=== PATIENT | female | born 1945 | race Caucasian/White ===

== ENCOUNTER 2017-09-06 20:42 | Emergency (ER) | payer MEDICARE, MEDICAID ==
[2017-09-06] MEDS ORDERED: HYDROCODONE/APAP 5/325MG TABLET PO ONE (21:22)
--- NOTE | 2017-09-06 21:48 | Emergency Department Record ---
History of Present Illness - General Chief Complaint: Fall Injury Stated Complaint: FALL INJURY/LEFT HIP Time Seen by Provider: 09/06/17 21:17 Source: Patient Mode of Arrival: Wheelchair Limitations: No limitations - History of Present Illness Initial Comments: pt fell this morning injuring l hip. she laid on the floor for an hour and then was able to get up with difficulty. she has contd to have pain and difficulty walking. she has had surgery on this hip because of a previous fracture Complaint: Fall Onset/Timin -: Hour(s) Fall From: Standing Fall Witnessed: No Place Fall Occurred: Home Loss of Consciousness: None Prolonged Down Time?: Yes, Hour(s) Location - Extremities: Left: Thigh Severity scale (1-10): 8 Associated Symptoms: Denies - [place] Coma Scale Eye Response: (4) Open spontaneously Motor Response: (6) Obeys commands Verbal Response: (5) Oriented [place] Total: 15 - Related Data Home Medications Medication Instructions Recorded Confirmed Last Taken Duloxetine HCl [Cymbalta] 60 mg PO BID 09/06/17 09/06/17 09/06/17 Hydrocodone/Acetaminophen [[place] 1 tab PO Q8H PRN 09/06/17 09/06/17 Unknown 10mg/325mg] Insulin Glargine,Hum.rec.anlog 170 unit SQ DAILY 09/06/17 09/06/17 Unknown [[place] Solostar] Insulin Lispro [Humalog] 100 unit SQ DAILY PRN 09/06/17 09/06/17 Unknown Pt Unsure Of Bp Med-Enalapril? 1 tab PO DAILY 09/06/17 Unknown Allergies Allergy/AdvReac Type Severity Reaction Status Date / Time amoxicillin [From Augmentin] Allergy HIVES Verified 09/06/17 21:07 ceftriaxone [From Rocephin] Allergy HIVES Verified 09/06/17 21:07 clavulanic acid Allergy HIVES Verified 09/06/17 21:07 [From Augmentin] codeine Allergy HIVES Verified 09/06/17 21:07 fluoxetine [From Prozac] Allergy HIVES Verified 09/06/17 21:07 meperidine [From Demerol] Allergy HIVES Verified 09/06/17 21:07 morphine Allergy HIVES Verified 09/06/17 21:07 oxazepam [From Serax] Allergy HIVES Verified 09/06/17 21:07 Penicillins Allergy HIVES Verified 09/06/17 21:07 povidone-iodine Allergy SKIN Verified 09/06/17 21:07 [From Betadine] IRRITATION soap [From Betadine] Allergy SKIN Verified 09/06/17 21:07 IRRITATION Sulfa (Sulfonamide Allergy HIVES Verified 09/06/17 21:07 Antibiotics) sulfamethoxazole Allergy HIVES Verified 09/06/17 21:08 [From Septra] Tetracyclines Allergy HIVES Verified 09/06/17 21:07 trimethoprim [From Septra] Allergy HIVES Verified 09/06/17 21:08 vancomycin Allergy HIVES Verified 09/06/17 21:07 Travel Screening - Travel/Exposure Within Last 30 Days Have you traveled within the last 30 days?: No - Travel Symptoms Symptom Screening: None Review of Systems Reviewed: No additional complaints except as noted below Constitutional: Reports: As per HPI. Denies: Chills, Fever, Malaise, Night sweats, Weakness, Weight change Eyes: Reports: As per HPI. Denies: Eye discharge, Eye pain, Photophobia, Vision change ENT: Reports: As per HPI. Denies: Congestion, Dental pain, Ear pain, Epistaxis , Hearing loss, Throat pain Respiratory: Reports: As per HPI. Denies: Cough, Dyspnea, Hemoptysis, Stridor, Wheezes Cardiovascular: Reports: As per HPI. Denies: Arrhythmia, Chest pain, Dyspnea on exertion, Edema, Murmurs, Orthopnea, Palpitations, Paroxysmal nocturnal dyspnea, Rheumatic Fever, Syncope Endocrine: Reports: As per HPI. Denies: Fatigue, Heat or cold intolerance, Polydipsia, Polyuria Gastrointestinal: Reports: As per HPI. Denies: Abdominal pain, Constipation, Diarrhea, Hematemesis, Hematochezia, Melena, Nausea, Vomiting Genitourinary: Reports: As per HPI. Denies: Abnormal menses, Discharge, Dyspareunia, Dysuria, Frequency, Hematuria, Incontinence, Retention, Urgency Musculoskeletal: Reports: As per HPI. Denies: Arthralgia, Back pain, Gout, Joint swelling, Myalgia, Neck pain Skin: Reports: As per HPI. Denies: Bruising, Change in color, Change in hair/ nails, Lesions, Pruritus, Rash Neurological: Reports: As per HPI. Denies: Abnormal gait, Confusion, Headache, Numbness, Paresthesias, Seizure, Tingling, Tremors, Vertigo, Weakness Psychiatric: Reports: As per HPI. Denies: Anxiety, Auditory hallucinations, Depression, Homicidal thoughts, Suicidal thoughts, Visual hallucinations Hematological/Lymphatic: Reports: As per HPI. Denies: Anemia, Blood Clots, Easy bleeding, Easy bruising, Swollen glands Past Medical History - SOCIAL HISTORY Smoking Status: Former smoker - RESPIRATORY Hx Respiratory Disorders: No - CARDIOVASCULAR Hx Cardio Disorders: Yes Hx Hypertension: Yes - NEURO Hx Neuro Disorders: Yes Comment:: Tremors - GI Hx GI Disorders: Yes Hx Reflux: Yes Hx Liver Disease: Yes (Hep A,B, C) - Hx Genitourinary Disorders: No - ENDOCRINE Hx Endocrine Disorders: Yes Hx Diabetes: Yes - MUSCULOSKELETAL Hx Musculoskeletal Disorders: Yes - PSYCH Hx Psych Problems: Yes Hx Depression: Yes - HEMATOLOGY/ONCOLOGY Hx Hematology/Oncology Disorders: Yes Hx Cancer: Yes (skin-face) Hx Chemotherapy: No Hx Radiation Therapy: No Family Medical History Any Significant Family History?: Yes Family Hx Comment (NOT TO BE USED IN PLACE OF ITEMS BELOW): Daughter w/brain surgery d/t increased fluid. Hx Cancer: Mother Hx Heart Disease: Father, Mother, Children Hx Seizures: Children Hx Stroke: Children Physical Exam - General General Appearance: Alert, Oriented x3, Cooperative, Mild distress - Head Head exam: Normal inspection - Eye Eye exam: Normal appearance, PERRL, EOMI Pupils: Normal accommodation - ENT ENT exam: Normal exam, Mucous membranes moist, Normal external ear exam, Normal orophraynx Ear exam: Normal external inspection. negative: External canal tenderness Nasal Exam: Normal inspection. negative: Discharge, Sinus tenderness Mouth exam: Normal external inspection, Tongue normal Teeth exam: Normal inspection. negative: Dental caries Throat exam: Normal inspection. negative: Tonsillar erythema, Tonsillar exudate - Neck Neck exam: Normal inspection, Full ROM. negative: Tenderness - Respiratory Respiratory exam: Normal lung sounds bilaterally. negative: Respiratory distress - Cardiovascular Cardiovascular Exam: Regular rate, Normal rhythm, Normal heart sounds - GI/Abdominal GI/Abdominal exam: Soft, Normal bowel sounds. negative: Tenderness - Rectal Rectal exam: Deferred - exam: Deferred - Extremities Extremities exam: Normal capillary refill, Tenderness. negative: Normal inspection, Full ROM - Back Back exam: Reports: Normal inspection, Full ROM. Denies: Muscle spasm, Rash noted, Tenderness - Neurological Neurological exam: Alert, CN II-XII intact, Normal gait, Oriented X3 - Psychiatric Psychiatric exam: Normal affect, Normal mood - Skin Skin exam: Dry, Intact, Normal color, Warm Course Vital Signs 09/06/17 20:50 Temperature 98.0 F Pulse Rate 99 H Respiratory 18 Rate Blood Pressure 129/62 Pulse Ox 95 Disposition Disposition: Discharge Clinical Impression: Contusion, hip Qualifiers: Encounter type: initial encounter Laterality: left Qualified Code(s): S70.02XA - Contusion of left hip, initial encounter Disposition: Home, Self-Care Condition: (1) Good Instructions: Fall Prevention for Older Adults (ED), Contusion in Adults (ED) Additional Instructions: follow up with family doctor. return sooner if worse. ice to sore area Forms: Patient Portal Access Quality - Quality Measures Quality Measures: N/A - Blood Pressure Screening Does Patient Have Any of the Following: No Blood Pressure Classification: Pre-Hypertensive BP Reading Systolic Measurement: 129 Diastolic Measurement: 62 Screening for High Blood Pressure: < Pre-Hypertensive BP, F/U Documented > [ [id number]] Pre-Hypertensive Follow-up Interventions: Follow-up with rescreen every year.
[2017-09-06 21:49] LABS: URINE APPEARANCE CLEAR; URINE BILIRUBIN NEGATIVE (NEGATIVE); URINE BLOOD NEGATIVE (NEGATIVE); URINE COLOR YELLOW; URINE KETONE NEGATIVE (NEGATIVE); URINE LEUKOCYTE ESTERASE TRACE (NEGATIVE); URINE NITRITE NEGATIVE (NEGATIVE); URINE PROTEIN NEGATIVE (NEGATIVE); URINE UROBILINOGEN 0.2 E.U./dL (0.20 - 1.00)
[2017-09-06 21:55] LABS: URINE GLUCOSE (UA) >=1000 mg/dL (NEGATIVE)
[2017-09-06 22:01] LABS: URINE BACTERIA 2+; URINE EPITHELIAL CELLS 0 - 2 (FEW); URINE RBC NONE SEEN (NONE SEEN)
--- NOTE | 2017-09-08 10:07 | RADIOLOGY REPORT ---
DATE: 09/06/2017. EXAM: PELVIS AND LEFT HIP. HISTORY: Pain. TECHNIQUE: AP and pelvis with two views of the left hip. COMPARISON: None. ENCOUNTER: Initial. FINDINGS: Osteopenia. Status post total left hip arthroplasty. Degenerative changes of the right hip. No radiographic evidence for acute fracture or dislocation. Soft tissues are unremarkable. IMPRESSION: OSTEOPENIA. LEFT HIP ARTHROPLASTY CHANGE. NEGATIVE FOR ACUTE FRACTURE. JOB NUMBER: [id number] MTDD
== END 2017-09-06 23:13 | disposition home or self-care (01) ==
LOC: ER 20:42
DX: S70.02XA Contusion of left hip, initial encounter (principal); W19.XXXA Unspecified fall, initial encounter; I10 Essential (primary) hypertension; Z87.891 Personal history of nicotine dependence; E11.9 Type 2 diabetes mellitus without complications; Z79.4 Long term (current) use of insulin
CPT/HCPCS: 81001; 99283; 99284

== ENCOUNTER 2018-03-09 16:43 | Emergency (ER) | payer MEDICARE, MEDICAID ==
[2018-03-09] MEDS ORDERED: ACETAMINOPHEN 325 MG TAB PO ONE (16:53)
--- NOTE | 2018-03-09 16:58 | Emergency Department Record ---
History of Present Illness - General Chief Complaint: Fall Injury Stated Complaint: FALL INJURY Time Seen by Provider: 03/09/18 16:53 Source: Patient Mode of Arrival: Stretcher Limitations: No limitations - History of Present Illness Initial Comments: The patient is here due to feeling lightheaded at home after standing and falling to the L side possibly injuring her L ribs. She denies any head or neck injury or any LOC. Presently she feels well and is only complaining of L rib pain. There is no hx of CP, SOB, FERNANDO, or dysuria but she has been slightly weak today. The patient did just get out of rehab yesterday due to a UTI and deconditioning. She was there a week per family. Additionally the patient did not take her Insulin today and her accucheck was slightly high per EMS. MD Complaint: Fall Onset/Timin -: Minutes(s) Fall From: Standing When Fall Occurred: Just prior to arrival Place Fall Occurred: Home Loss of Consciousness: None Prolonged Down Time?: No Symptoms Prior to Fall: Dizziness, Lightheadedness Associated Symptoms: Denies - [place] Coma Scale Eye Response: (4) Open spontaneously Motor Response: (6) Obeys commands Verbal Response: (5) Oriented [place] Total: 15 - Related Data Home Medications Medication Instructions Recorded Confirmed Last Taken Aripiprazole [Abilify] 2 mg PO DAILY 03/09/18 03/09/18 03/09/18 Lisinopril 20 mg PO DAILY 03/09/18 03/09/18 03/08/18 Omeprazole 20 mg PO DAILY 03/09/18 03/09/18 03/09/18 Ranitidine HCl [Zantac] 300 mg PO DAILY 03/09/18 03/09/18 03/09/18 Sennosides [Senna] 8.6 mg PO DAILY 03/09/18 03/09/18 03/08/18 Allergies Allergy/AdvReac Type Severity Reaction Status Date / Time amoxicillin [From Augmentin] Allergy HIVES Verified 03/09/18 17:00 ceftriaxone [From Rocephin] Allergy HIVES Verified 03/09/18 17:00 clavulanic acid Allergy HIVES Verified 03/09/18 17:00 [From Augmentin] codeine Allergy HIVES Verified 03/09/18 17:00 fluoxetine [From Prozac] Allergy HIVES Verified 03/09/18 17:00 meperidine [From Demerol] Allergy HIVES Verified 03/09/18 17:00 morphine Allergy HIVES Verified 03/09/18 17:00 oxazepam [From Serax] Allergy HIVES Verified 03/09/18 17:00 Penicillins Allergy HIVES Verified 03/09/18 17:00 povidone-iodine Allergy SKIN Verified 03/09/18 17:00 [From Betadine] IRRITATION soap [From Betadine] Allergy SKIN Verified 03/09/18 17:00 IRRITATION Sulfa (Sulfonamide Allergy HIVES Verified 03/09/18 17:00 Antibiotics) sulfamethoxazole Allergy HIVES Verified 03/09/18 17:00 [From Septra] Tetracyclines Allergy HIVES Verified 03/09/18 17:00 trimethoprim [From Septra] Allergy HIVES Verified 03/09/18 17:00 vancomycin Allergy HIVES Verified 03/09/18 17:00 Travel Screening - Travel/Exposure Within Last 30 Days Have you traveled within the last 30 days?: No - Travel/Exposure Within Last Year Have you traveled outside the [place] in the last year?: No - Additonal Travel Details Have you been exposed to anyone with a communicable illness?: No - Travel Symptoms Symptom Screening: None Review of Systems Constitutional: Denies: Chills, Fever Eyes: Denies: Eye discharge ENT: Denies: Congestion Respiratory: Denies: Cough, Dyspnea Past Medical History - SOCIAL HISTORY Smoking Status: Former smoker Alcohol Use: None Drug Use: None - RESPIRATORY Hx Respiratory Disorders: No - CARDIOVASCULAR Hx Cardio Disorders: Yes Hx Hypertension: Yes - NEURO Hx Neuro Disorders: Yes Comment:: Tremors - GI Hx GI Disorders: Yes Hx Reflux: Yes Hx Liver Disease: Yes (Hep A,B, C) - Hx Genitourinary Disorders: No - ENDOCRINE Hx Endocrine Disorders: Yes Hx Diabetes: Yes - MUSCULOSKELETAL Hx Musculoskeletal Disorders: Yes - PSYCH Hx Psych Problems: Yes Hx Depression: Yes - HEMATOLOGY/ONCOLOGY Hx Hematology/Oncology Disorders: Yes Hx Cancer: Yes (skin-face) Hx Chemotherapy: No Hx Radiation Therapy: No Family Medical History Any Significant Family History?: No Family Hx Comment (NOT TO BE USED IN PLACE OF ITEMS BELOW): Daughter w/brain surgery d/t increased fluid. Hx Cancer: Mother Hx Heart Disease: Father, Mother, Children Hx Seizures: Children Hx Stroke: Children Physical Exam - General General Appearance: Alert, Oriented x3, Cooperative, No acute distress - Head Head exam: Atraumatic, Normocephalic, Normal inspection - Eye Eye exam: Normal appearance, PERRL - ENT Throat exam: Normal inspection. negative: Tonsillar erythema, Tonsillar exudate - Neck Neck exam: Normal inspection, Full ROM. negative: Tenderness - Respiratory Respiratory exam: Normal lung sounds bilaterally, Chest wall tenderness (There is mild tenderness to the anterior lower L ribs.). negative: Respiratory distress - Cardiovascular Cardiovascular Exam: Regular rate, Normal rhythm, Normal heart sounds - GI/Abdominal GI/Abdominal exam: Soft, Normal bowel sounds. negative: Rebound, Rigid, Tenderness - Extremities Extremities exam: Normal inspection, Full ROM, Normal capillary refill, Other ( There is no hip or shoulder tenderness.). negative: Tenderness Course Vital Signs 03/09/18 16:44 Temperature 98.1 F Pulse Rate 80 Respiratory 18 Rate Blood Pressure 119/78 Pulse Ox 100 - Reevaluation(s) Reevaluation #1: The patient is doing well at this time. She states her pain is improving and she is able to get up and walk with no difficulty or ataxia. She is very steady with our walker and stable. She does feel comfortable going home. 03/09/18 18:33 Reevaluation #2: The patient is resting comfortably. I did discuss the delay due to the chemistry machine malfunctioning and the patient is aware. She is drinking fluids well and is aware of the delay. 03/09/18 19:30 Reevaluation #3: The patient was doing very well prior to discharge. Her urine result was basically WNL's. I did call the patient at home this AM and her daughter stated she was doing well. I also advised the daughter to hold the patient's Lisinopril for 3 days and then see her PCP for a blood pressure recheck. 03/10/18 09:10 Medical Decision Making - Data Complexity MDM Data: Labs Ordered and/or Reviewed, X-Ray Ordered and/or Reviewed - Lab Data Result diagrams: 03/09/18 17:42 03/09/18 17:42 - Radiology Data Radiology results: Report reviewed (L ribs: L T6-7 nondisplaced rib fx's.) Disposition Disposition: Discharge Clinical Impression: Left rib fracture Qualifiers: Encounter type: initial encounter Rib fracture type: multiple ribs Fracture type: closed Qualified Code(s): S22.42XA - Multiple fractures of ribs, left side , initial encounter for closed fracture Disposition: Home, Self-Care Condition: (2) Stable Instructions: Rib Fracture (ED) Additional Instructions: The patient is to drink plenty of fluids and take her home pain medicines as directed. Please use your Incentive Spirometer as directed. Please see your family doctor for recheck in 3 days. Return to the ER for any worsening symptoms. Forms: Patient Portal Access Time of Disposition: 19:33 Quality - Quality Measures Quality Measures: N/A - Blood Pressure Screening View Details: Yes Does Patient Have Any of the Following: No Blood Pressure Classification: Normal BP Reading Systolic Measurement: 91 Diastolic Measurement: 52 Screening for High Blood Pressure: < Normal BP, F/U Not Required > [G8783]
[2018-03-09 17:56] LABS: HEMATOCRIT 41.1 % (35.0-47.0); HEMOGLOBIN 13.6 gm/dl (11.6-16.0); MEAN CELL VOLUME 89.3 fl (81-97); MEAN CORPUSCULAR HEMOGLOBIN 29.6 pg (27-33); MEAN CORPUSCULAR HGB CONC 33.1 g/dl (32-36); MEAN PLATELET VOLUME 9.6 fl (7.4-10.4); PLATELET COUNT 351 K/uL (130-400); RED CELL DISTRIBUTION WIDTH 13.1 % (11.5-14.5); WHITE BLOOD COUNT W/O DIFF 14.9 K/uL (4.2-12.2)
[2018-03-09 18:05] LABS: PLATELET ESTIMATE NORMAL (NORMAL)
[2018-03-09 20:49] LABS: BLOOD UREA NITROGEN 34 mg/dL (8-23); CREATININE 0.7 mg/dL (0.5-0.9); EST GLOMERULAR FILTRATION RATE > 60 mL/min
[2018-03-09 20:50] LABS: TOTAL PROTEIN 6.7 g/dL (6.6-8.7)
[2018-03-09 20:52] LABS: GLUCOSE,RANDOM 406 mg/dL (74-109)
[2018-03-09 20:55] LABS: ALBUMIN 3.3 g/dL (4.0-5.0); ALKALINE PHOSPHATASE 104 U/L (35-104); ALT/SGPT 16 U/L (<33); AST/SGOT 21 U/L (10.0-35.0)
[2018-03-09 21:03] LABS: URINE APPEARANCE CLEAR; URINE BILIRUBIN NEGATIVE (NEGATIVE); URINE BLOOD NEGATIVE (NEGATIVE); URINE COLOR YELLOW; URINE KETONE NEGATIVE (NEGATIVE); URINE LEUKOCYTE ESTERASE NEGATIVE (NEGATIVE); URINE NITRITE NEGATIVE (NEGATIVE); URINE PROTEIN TRACE (NEGATIVE); URINE UROBILINOGEN 0.2 E.U./dL (0.20 - 1.00)
[2018-03-09 21:06] LABS: URINE GLUCOSE (UA) >=1000 mg/dL (NEGATIVE)
[2018-03-09 21:14] LABS: URINE BACTERIA FEW; URINE HYALINE CAST 0 - 2 /lpf; URINE RBC 0 - 2 (NONE SEEN); URINE SQUAMOUS EPITHELIAL CELL 0 - 2 /hpf; URINE YEAST FEW
--- NOTE | 2018-03-09 21:15 | Emergency Department Record ---
History of Present Illness - General Chief Complaint: Fall Injury Stated Complaint: FALL INJURY Time Seen by Provider: 03/09/18 16:53 Source: Patient Mode of Arrival: Stretcher - History of Present Illness Onset/Timin -: Minutes(s) Fall From: Standing When Fall Occurred: Just prior to arrival Place Fall Occurred: Home Loss of Consciousness: None Prolonged Down Time?: No Symptoms Prior to Fall: Dizziness, Lightheadedness Associated Symptoms: Denies - [place] Coma Scale Eye Response: (4) Open spontaneously Motor Response: (6) Obeys commands Verbal Response: (5) Oriented [place] Total: 15 - Related Data Home Medications Medication Instructions Recorded Confirmed Last Taken Aripiprazole [Abilify] 2 mg PO DAILY 03/09/18 03/09/18 03/09/18 Lisinopril 20 mg PO DAILY 03/09/18 03/09/18 03/08/18 Omeprazole 20 mg PO DAILY 03/09/18 03/09/18 03/09/18 Ranitidine HCl [Zantac] 300 mg PO DAILY 03/09/18 03/09/18 03/09/18 Sennosides [Senna] 8.6 mg PO DAILY 03/09/18 03/09/18 03/08/18 Allergies Allergy/AdvReac Type Severity Reaction Status Date / Time amoxicillin [From Augmentin] Allergy HIVES Verified 03/09/18 17:00 ceftriaxone [From Rocephin] Allergy HIVES Verified 03/09/18 17:00 clavulanic acid Allergy HIVES Verified 03/09/18 17:00 [From Augmentin] codeine Allergy HIVES Verified 03/09/18 17:00 fluoxetine [From Prozac] Allergy HIVES Verified 03/09/18 17:00 meperidine [From Demerol] Allergy HIVES Verified 03/09/18 17:00 morphine Allergy HIVES Verified 03/09/18 17:00 oxazepam [From Serax] Allergy HIVES Verified 03/09/18 17:00 Penicillins Allergy HIVES Verified 03/09/18 17:00 povidone-iodine Allergy SKIN Verified 03/09/18 17:00 [From Betadine] IRRITATION soap [From Betadine] Allergy SKIN Verified 03/09/18 17:00 IRRITATION Sulfa (Sulfonamide Allergy HIVES Verified 03/09/18 17:00 Antibiotics) sulfamethoxazole Allergy HIVES Verified 03/09/18 17:00 [From ] Tetracyclines Allergy HIVES Verified 03/09/18 17:00 trimethoprim [From ] Allergy HIVES Verified 03/09/18 17:00 vancomycin Allergy HIVES Verified 03/09/18 17:00 Travel Screening - Travel/Exposure Within Last 30 Days Have you traveled within the last 30 days?: No - Travel/Exposure Within Last Year Have you traveled outside the [place] in the last year?: No - Additonal Travel Details Have you been exposed to anyone with a communicable illness?: No - Travel Symptoms Symptom Screening: None Review of Systems Constitutional: Denies: Chills, Fever Eyes: Denies: Eye discharge ENT: Denies: Congestion Respiratory: Denies: Cough, Dyspnea Past Medical History - SOCIAL HISTORY Smoking Status: Former smoker Alcohol Use: None Drug Use: None - RESPIRATORY Hx Respiratory Disorders: No - CARDIOVASCULAR Hx Cardio Disorders: Yes Hx Hypertension: Yes - NEURO Hx Neuro Disorders: Yes Comment:: Tremors - GI Hx GI Disorders: Yes Hx Reflux: Yes Hx Liver Disease: Yes (Hep A,B, C) - Hx Genitourinary Disorders: No - ENDOCRINE Hx Endocrine Disorders: Yes Hx Diabetes: Yes - MUSCULOSKELETAL Hx Musculoskeletal Disorders: Yes - PSYCH Hx Psych Problems: Yes Hx Depression: Yes - HEMATOLOGY/ONCOLOGY Hx Hematology/Oncology Disorders: Yes Hx Cancer: Yes (skin-face) Hx Chemotherapy: No Hx Radiation Therapy: No Family Medical History Any Significant Family History?: No Family Hx Comment (NOT TO BE USED IN PLACE OF ITEMS BELOW): Daughter w/brain surgery d/t increased fluid. Hx Cancer: Mother Hx Heart Disease: Father, Mother, Children Hx Seizures: Children Hx Stroke: Children Physical Exam - General Limitations: No limitations Course Vital Signs 03/09/18 03/09/18 03/09/18 16:44 19:18 20:14 Temperature 98.1 F Pulse Rate 80 Pulse Rate [ 84 81 Pulse Ox Probe] Respiratory 18 16 20 Rate Blood Pressure 119/78 Blood Pressure 96/51 88/41 [Left Arm] Pulse Ox 100 95 98 03/09/18 21:08 Temperature Pulse Rate Pulse Rate [ 69 Pulse Ox Probe] Respiratory 18 Rate Blood Pressure Blood Pressure 89/48 [Left Arm] Pulse Ox 95 - Reevaluation(s) Reevaluation #1: 03/09/18 21:13 Comprehensive panel was reviewed, Glucose 406, labs are otherwise grossly unremarkable for an acute process. UA demonstrates hyperglycemia, no evidence for infection. Patient does reports that she has not taken her diabetes medication today, no evidence for DKA on examination. Patient appears stable for discharge at this time. Medical Decision Making - Lab Data Result diagrams: 03/09/18 17:42 03/09/18 17:42 Lab Results 03/09/18 03/09/18 03/09/18 Range/Units 17:42 17:42 21:00 WBC 14.9 H (4.2-12.2) K/uL RBC 4.60 (3.80-5.40) M/uL Hgb 13.6 (11.6-16.0) gm/dl Hct 41.1 (35.0-47.0) % MCV 89.3 (81-97) fl MCH 29.6 (27-33) pg MCHC 33.1 (32-36) g/dl RDW 13.1 (11.5-14.5) % Plt Count 351 (130-400) K/uL MPV 9.6 (7.4-10.4) fl Neutrophils % 91.0 H (47-80) % Band Neutrophils % 1.0 (0-5) % Eosinophils % Not Reportable Basophils % Not Reportable Lymphocytes 6.0 L (16-45) % Monocytes 2.0 (0-9) % Platelet Estimate Normal (NORMAL) RBC Morphology Normal Sodium 133 L (136-145) mmol/L Potassium 4.5 (3.4-4.5) mmol/L Chloride 93 L (98-107) mmol/L Carbon Dioxide 25.0 (22-29) mmol/L Anion Gap 15.0 (7-16) BUN 34 H (8-23) mg/dL Creatinine 0.7 (0.5-0.9) mg/dL Estimated GFR > 60 mL/min Random Glucose 406 H (74-109) mg/dL Calcium 9.0 (8.8-10.2) mg/dL Total Bilirubin 0.60 (0.2-1.0) mg/dL AST 21 (10.0-35.0) U/L ALT 16 (<33) U/L Alkaline Phosphatase 104 (35-104) U/L Total Protein 6.7 (6.6-8.7) g/dL Albumin 3.3 L (4.0-5.0) g/dL Globulin 3.4 (1.4-4.8) gm/dL Albumin/Globulin Ratio 1.0 L (1.1-1.8) Urine Color Yellow Urine Appearance Clear Urine pH 5.5 (5.0-8.0) Ur Specific [place] 1.025 (1.002-1.030) Urine Protein Trace H (NEGATIVE) Urine Glucose (UA) >=1000 mg/dl H (NEGATIVE) Urine Ketones Negative (NEGATIVE) Urine Blood Negative (NEGATIVE) Urine Nitrite Negative (NEGATIVE) Urine Bilirubin Negative (NEGATIVE) Urine Urobilinogen 0.2 (0.20 - 1.00) E.U./dL Ur Leukocyte Esterase Negative (NEGATIVE) Disposition Disposition: Discharge Clinical Impression: Left rib fracture Qualifiers: Encounter type: initial encounter Rib fracture type: multiple ribs Fracture type: closed Qualified Code(s): S22.42XA - Multiple fractures of ribs, left side , initial encounter for closed fracture Disposition: Home, Self-Care Condition: (2) Stable Instructions: Rib Fracture (ED) Additional Instructions: The patient is to drink plenty of fluids and take her home pain medicines as directed. Please use your Incentive Spirometer as directed. Please see your family doctor for recheck in 3 days. Return to the ER for any worsening symptoms. Forms: Patient Portal Access Time of Disposition: 21:14 Quality - Quality Measures Quality Measures: N/A - Blood Pressure Screening Does Patient Have Any of the Following: No Blood Pressure Classification: Normal BP Reading Systolic Measurement: 91 Diastolic Measurement: 52 Screening for High Blood Pressure: < Normal BP, F/U Not Required > [G8783]
--- NOTE | 2018-03-10 21:26 | RADIOLOGY REPORT ---
EXAM: RIBS, LEFT W/PA CHEST HISTORY: LEFT ANTERIOR RIB PAIN STATUS POST FALL. TECHNIQUE: An AP upright view of the chest and three views of the left ribs were obtained. COMPARISON: None. FINDINGS: The heart is upper normal in size. The mediastinum and pulmonary vasculature are normal. Mild chronic interstitial changes are present within both lungs. There are no visible acute infiltrates or effusions. There is no pneumothorax. Vertebroplasty cement is present within the mid thoracic spine. Postsurgical changes are present within both shoulders. Detailed views of the left ribs demonstrate subtle cortical irregularity along the anterior ends of the left sixth and seventh ribs consistent with nondisplaced fractures. No other discrete fractures are identified. IMPRESSION: 1. NONDISPLACED FRACTURES OF THE ANTERIOR ASPECTS OF THE LEFT SIXTH AND SEVENTH RIBS. 2. NO ACUTE INTRATHORACIC PATHOLOGY. 3. CHRONIC FINDINGS ABOVE. JOB NUMBER: [id number] MTDD
== END 2018-03-09 21:49 | disposition home or self-care (01) ==
LOC: ER 16:43
DX: S22.42XA Multiple fractures of ribs, left side, initial encounter for closed fracture (principal); R42 Dizziness and giddiness; I10 Essential (primary) hypertension; E11.9 Type 2 diabetes mellitus without complications; Z87.891 Personal history of nicotine dependence; Z79.4 Long term (current) use of insulin; W18.39XA Other fall on same level, initial encounter; Y92.009 Unspecified place in unspecified non-institutional (private) residence as the place of occurrence of the external cause
CPT/HCPCS: 80053; 81001; 85027; 99283; 99284